=== PATIENT | male | born 1965 | race Caucasian/White ===

== ENCOUNTER → 2020-06-05 07:43 | Outpatient (CLI) | payer OTHER, SELFPAY ==
--- NOTE | ~2020-06-05 | US_ITS ---
US thyroid INDICATION: Nontoxic multinodular goiter TECHNIQUE: Real-time sonographic images of the thyroid gland were obtained. COMPARISON: Ultrasound dated 12/08/2018 FINDINGS: The right thyroid lobe measures 4.5 x 2.1 x 2.2 cm. The left thyroid lobe measures 4 x 1.9 x 1.6 cm. There is normal echotexture and echogenicity throughout the thyroid gland. Stable small hy poechoic masses in both lobes measuring 5 mm or less, TR 4. Normal vascular flow is present. IMPRESSION: 1. Mildly enlarged heterogeneous thyroid gland containing multiple small thyroid nodules of both lob es, none of which meet consensus criteria for biopsy or follow-up. Reviewed, dictated and finalized at location B. IMPRESSION: 1. Mildly enlarged heterogeneous thyroid gland containing multiple small thyro id nodules of both lobes, none of which meet consensus criteria for biopsy or f ollow-up.
== END ==
PROVIDERS: PCP Pediatrics; Visit Provider Pediatrics
DX: E04.2 Nontoxic multinodular goiter (principal)
CPT/HCPCS: 76536